=== PATIENT | female | born 1975 | race Caucasian/White ===

== ENCOUNTER 2016-11-14 23:06 | Emergency (ER) | payer MEDICAID, OTHER ==
[2016-11-14 23:42] LABS: % IMMATURE GRANULYOCYTES 0.1 % (0.0-1.1); ABSOLUTE IMMATURE GRANULOCYTES 0.01 10^3/uL (0.00-0.10); ADD DIFF? NO; ADD MORPH? NO; ADD SCAN? NO; ATYPICAL LYMPHOCYTE FLAG 10 (0-99); FRAGMENT RBC FLAG 0 (0-99); HEMATOCRIT 40.6 % (38.0-47.0); HEMOGLOBIN 13.7 g/dL (12.6-16.3); LEFT SHIFT FLG 0 (0-99); LIPEMIA HEMOLYSIS FLAG 80 (0-99); MEAN CELL HEMOGLOBIN 29.1 pg (27.9-34.1); MEAN CELL HEMOGLOBIN CONCENTR. 33.7 g/dL (32.4-36.7); MEAN CELL VOLUME 86.2 fL (81.5-99.8); MEAN PLATELET VOLUME 9.9 fL (8.7-11.7); PLATELET CLUMPS FLAG 10 (0-99); PLATELET COUNT 255 10^3/uL (150-400); RED BLOOD CELL COUNT 4.71 10^6/uL (4.18-5.33); RED CELL DISTRIBUTION WIDTH 13.7 % (11.5-15.2)
[2016-11-14 23:56] LABS: ANION GAP 13 mEq/L (8-16); CALCIUM 9.4 mg/dL (8.5-10.4); CARBON DIOXIDE 23 mEq/l (22-31); CHLORIDE 105 mEq/L (97-110); CREATININE 0.7 mg/dL (0.6-1.0); ETHANOL SERUM < 10 mg/dL (0-10); GLOMERULAR FILTRATION RATE > 60; GLUCOSE 97 mg/dL (70-100); POTASSIUM 3.9 mEq/L (3.5-5.2); SALICYLATE < 1.0 mg/dL (2.0-20.0); SODIUM 141 mEq/L (134-144)
[2016-11-14 23:58] LABS: LITHIUM < 0.2 mEq/L (0.6-1.2)
--- NOTE | 2016-11-15 00:30 | EDPHY ---
H & P Stated Complaint: Depression; SI, seen at Crisis center tonight put on M1 - Personal History LMP (Females 10-55): 8-14 Days Ago Current Tetanus/Diphtheria Vaccine: Yes - Medical/Surgical History Hx Asthma: No Hx Chronic Respiratory Disease: No Hx Diabetes: No Hx Cardiac Disease: No Hx Renal Disease: No Hx Cirrhosis: No Hx Alcoholism: No Hx HIV/AIDS: No Hx Splenectomy or Spleen Trauma: No Other PMH: Depression. Bipolar - Social History Smoking Status: Never smoked HPI/ROS: Chief complaint: Mental health hold History of present illness: This is a 41-year-old female who presents to the emergency department on a mental health hold for medical clearance. Patient has a history of bipolar. Recently she has been becoming more depressed. She is having difficulty performing activities of daily living. She cannot take her medications as she is so depressed. She is now having thoughts of killing herself. No specific plan. She denies homicidal ideation. She denies illness or injury. Patient was at the mental health crisis center where she was placed on the mental health hold and sent here. Review of systems: A 10 point review of systems was obtained and other than described above was negative (Tulio Townsend) - Physical Exam Exam: General Appearance: Alert, nontoxic. Eyes: Pupils equal and round no pallor or injection. ENT, Mouth: Mucous membranes moist. Respiratory: There are no retractions, lungs are clear to auscultation. Cardiovascular: Regular rate and rhythm. Gastrointestinal: Abdomen is soft and nontender, no masses, bowel sounds normal. Neurological: Alert and oriented x4. Strength and sensation intact and symmetrical. Skin: Warm and dry, no rashes. Musculoskeletal: Neck is supple nontender. Extremities are symmetrical, full range of motion. Psychiatric: Patient is oriented X 3, there is no agitation. (Tulio Townsend) Constitutional: Initial Vital Signs Temperature (C) 36.7 C 11/14/16 23:25 Heart Rate 87 11/14/16 23:25 Respiratory Rate 20 11/14/16 23:25 Blood Pressure 127/82 H 11/14/16 23:25 O2 Sat (%) 97 11/14/16 23:25 O2 Delivery Mode Room Air Allergies/Adverse Reactions: No Known Allergies Allergy (Unverified 11/14/16 23:24) Home Medications: Medication Instructions Recorded Latuda 03/04/17 [place] Aspartate 11/14/16 Seroquel 11/14/16 Vistaril 11/14/16 Medical Decision Making ED Course/Re-evaluation: Patient seen under the supervision of my secondary supervising physician Dr. Chad Gomez. Patient presents to the emergency department on a mental health hold which reports her as being gravely disabled and having suicidal ideation. Patient is nontoxic. Vital signs are stable. She is medically evaluated and cleared for psychiatric evaluation. This is pending at time of dictation. Care of patient is turned over to my attending physician at end of shift. (Tulio Townsend) 0100 care assumed by me from OLIVIA Townsend pending placement. 0530 patient has been accepted to [facility] under Dr. Marx. I have completed the EMTALA form. There been no issues during my care of this patient. (Chad Farley) Differential Diagnosis: Included but not limited to depression, bipolar, schizophrenia, substance abuse (Tulio Townsend) - Data Points Laboratory Results: Laboratory Results 11/14/16 23:30 11/14/16 23:30 11/14/16 11/14/16 11/14/16 23:59 23:30 23:30 WBC RBC Hgb Hct MCV MCH MCHC RDW Plt Count MPV Neut % (Auto) Lymph % (Auto) Heard % (Auto) Eos % (Auto) Baso % (Auto) Nucleat RBC Rel Count Absolute Neuts (auto) Absolute Lymphs (auto) Absolute Monos (auto) Absolute Eos (auto) Absolute Basos (auto) Absolute Nucleated RBC Immature Gran % Immature Gran # Sodium Potassium Chloride Carbon Dioxide Anion Gap BUN Creatinine Estimated GFR Glucose Calcium TSH 1.950 uIU/mL uIU/mL (0.465-4.680) Beta HCG, Qual NEGATIVE Salicylates Urine Opiates Screen NEGATIVE (NEGATIVE) Acetaminophen Urine Barbiturates NEGATIVE (NEGATIVE) Ur Phencyclidine Scrn NEGATIVE (NEGATIVE) Ur Amphetamine Screen NEGATIVE (NEGATIVE) U Benzodiazepines Scrn NEGATIVE (NEGATIVE) [place] Urine Cocaine Screen NEGATIVE (NEGATIVE) U Marijuana (THC) Screen NEGATIVE (NEGATIVE) Ethyl Alcohol 11/14/16 11/14/16 23:30 23:30 WBC 7.60 10^3/uL 10^3/uL (3.80-9.50) RBC 4.71 10^6/uL 10^6/uL (4.18-5.33) Hgb 13.7 g/dL g/dL (12.6-16.3) Hct 40.6 % % (38.0-47.0) MCV 86.2 fL fL (81.5-99.8) MCH 29.1 pg pg (27.9-34.1) MCHC 33.7 g/dL g/dL (32.4-36.7) RDW 13.7 % % (11.5-15.2) Plt Count 255 10^3/uL 10^3/uL (150-400) MPV 9.9 fL fL (8.7-11.7) Neut % (Auto) 69.1 % % (39.3-74.2) Lymph % (Auto) 21.8 % % (15.0-45.0) Heard % (Auto) 6.8 % % (4.5-13.0) Eos % (Auto) 1.8 % % (0.6-7.6) Baso % (Auto) 0.4 % % (0.3-1.7) Nucleat RBC Rel Count 0.0 % % (0.0-0.2) Absolute Neuts (auto) 5.24 10^3/uL 10^3/uL (1.70-6.50) Absolute Lymphs (auto) 1.66 10^3/uL 10^3/uL (1.00-3.00) Absolute Monos (auto) 0.52 10^3/uL 10^3/uL (0.30-0.80) Absolute Eos (auto) 0.14 10^3/uL 10^3/uL (0.03-0.40) Absolute Basos (auto) 0.03 10^3/uL 10^3/uL (0.02-0.10) Absolute Nucleated RBC 0.00 10^3/uL 10^3/uL (0-0.01) Immature Gran % 0.1 % % (0.0-1.1) Immature Gran # 0.01 10^3/uL 10^3/uL (0.00-0.10) Sodium 141 mEq/L mEq/L (134-144) Potassium 3.9 mEq/L mEq/L (3.5-5.2) Chloride 105 mEq/L mEq/L (97-110) Carbon Dioxide 23 mEq/l mEq/l (22-31) Anion Gap 13 mEq/L mEq/L (8-16) BUN 10 mg/dL mg/dL (7-23) Creatinine 0.7 mg/dL mg/dL (0.6-1.0) Estimated GFR > 60 Glucose 97 mg/dL mg/dL (70-100) Calcium 9.4 mg/dL mg/dL (8.5-10.4) TSH Beta HCG, Qual Salicylates < 1.0 mg/dL L mg/dL (2.0-20.0) Urine Opiates Screen Acetaminophen < 10 mcg/mL L mcg/mL (10.0-30.0) Urine Barbiturates Ur Phencyclidine Scrn Ur Amphetamine Screen U Benzodiazepines Scrn [place] < 0.2 mEq/L L mEq/L (0.6-1.2) Urine Cocaine Screen U Marijuana (THC) Screen Ethyl Alcohol < 10 mg/dL mg/dL (0-10) Departure - Departure Disposition: Other Psych, Not [place] Clinical Impression: Suicidal ideation Referrals: NONE *PRIMARY CARE P,. [Primary Care Provider] - As per Instructions
[2016-11-15 07:42] VITALS: BP 136/91; PULSE 82; RESP 18; TEMP 97.9; O2SAT 99
== END 2016-11-15 07:37 ==
LOC: EDUNIT#
DX: R45.851 Suicidal ideations (principal)
CPT/HCPCS: 80305; G0480

== ENCOUNTER 2017-01-15 14:39 | Emergency (ER) | payer MEDICAID ==
--- NOTE | 2017-01-15 14:52 | CPEKG ---
Heart Rate: 105 RR Interval: 571 P-R Interval: 200 QRSD Interval: 88 QT Interval: 348 QTC Interval: 461 P [place]: 75 QRS [place]: -61 T Wave [place]: 32 EKG Severity - OTHERWISE NORMAL ECG - EKG Impression: SINUS TACHYCARDIA EKG Impression: LEFT AXIS DEVIATION Electronically Signed By: Yamil Galicia 16-Jan-2017 00:09:01
--- NOTE | 2017-01-15 14:57 | EDPHY ---
H & P Smoking Status: Never smoked Time Seen by Provider: 01/15/17 14:55 HPI/ROS: Chief complaint. [facility] OD, suicide ideation HPIKishan Wall is a 41 yo female who took 1 cup peterson's oil, Nice 900 mg, Seroquel 60 tqblets, Latuda 40 pills at 10-11pm last night. Denies alcohol or other ingestions. Today patient couldn't walk and called neighbor who called 911. No previous suicide attempts. Mom told her that she didn't want to see her anymore. "I don't want to be fine." Patient denies shortness of breath or abdominal pain. No vomiting or diarrhea. No cough ROS Constitutional. Weakness Eyes. no problems with vision ENT. no sore throat, no nasal drainage Cardiovascular. no chest pain Respiratory. no shortness of breath, no cough Abdominal. no abdominal pain, no nausea/vomiting, no diarrhea . no problems urinating MS. no calf pain/swelling, no neck/back pain, no joint pain Skin. no rash Lymph. no swollen glands Neuro. Off balance (Yamil Galicia) Past Medical/Surgical History: Depression, bipolar illness (Yamil Galicia) Social History: Single, nonsmoker, no alcohol (Yamil Galicia) Physical Exam: General Appearance: Alert well-developed female slightly sleepy appearing but otherwise conversational. Vital signs significant for heart rate of 111 Eyes: Pupils equal and round no pallor or injection. ENT, Mouth: Mucous membranes are moist. Respiratory: There are no retractions, lungs are clear to auscultation. Cardiovascular: Regular rate and rhythm. Gastrointestinal: Abdomen is soft and nontender, no masses, bowel sounds normal. Neurological: Awake and alert, sensory and motor exams grossly normal. Skin: Warm and dry, no rashes. Musculoskeletal: Neck is supple nontender. Extremities symmetrical, full range of motion. Psychiatric: Patient is oriented X 3, there is no agitation. (Yamil Galicia) Constitutional: Initial Vital Signs Temperature (C) 36.8 C 01/15/17 14:43 Heart Rate 111 H 01/15/17 14:43 Respiratory Rate 12 01/15/17 14:43 Blood Pressure 149/100 H 01/15/17 14:43 O2 Sat (%) 97 01/15/17 14:43 O2 Delivery Mode Room Air Allergies/Adverse Reactions: No Known Allergies Allergy (Unverified 11/14/16 23:24) Home Medications: Medication Instructions Recorded Latuda 11/14/16 [place] Aspartate 11/14/16 Seroquel 11/14/16 Vistaril 11/14/16 Medical Decision Making - Diagnostics EKG Interpretation: EKG interpreted by me shows sinus tachycardia normal interval. Left axis deviation. QRS is otherwise normal there is no significant ST elevation or depression. No arrhythmia. The rate is 105 (Yamil Galicia) Imaging Results: Chest x-ray interpreted by me is normal (Yamil Galicia) Procedures: IV normal saline, monitor (Yamil Galicia) ED Course/Re-evaluation: Poison control case #[id number]--Nncvna Patient remained stable on re-evaluation. Her heart rate still is about 116. She will be given a L of saline. Patient is slightly acidotic with a slight elevated anion gap. This is likely due to some of the medication that she took last night or could be lactate from dehydration. At any rate patient is alert and conversational stable. She and I discussed lab results, treatment plan including recommendation for mental health evaluation likely inpatient treatment. She expresses understanding and agreement Patient is med cleared and will have mental health evaluation Patient has remained stable on my shift. (Yamil Galicia) 1215: Patient has been seen evaluated by mental health. Recommends admission they will perform a bed search at this time. 0542AM: No acute events overnight. Patient pending inpatient psychiatric admission. Bed search being performed. Patient signed over at 7:00 a.m. shift change to Dr. Vargas. (Tristen Singletary) Other Provider: I assumed care of the patient at 0700 pending psychiatric placement. Update at 1:00 p.m.: The patient has been accepted for inpatient psychiatric admission by Dr. Reaves at [facility]. I have filled out the EMTALA transfer sheet. (Estuardo Vargas) Care Turn Over: Care transferred to Dr. Singletary at midnight (Yamil Galicia) - Data Points Laboratory Results: Laboratory Results 01/15/17 14:45 01/16/17 06:25 01/16/17 01/16/17 06:25 04:46 Sodium 147 mEq/L H mEq/L (134-144) Potassium 4.0 mEq/L mEq/L (3.5-5.2) Chloride 114 mEq/L H mEq/L (97-110) Carbon Dioxide 22 mEq/l mEq/l (22-31) Anion Gap 11 mEq/L mEq/L (8-16) BUN 8 mg/dL mg/dL (7-23) Creatinine 0.8 mg/dL mg/dL (0.6-1.0) Estimated GFR > 60 Glucose 103 mg/dL H mg/dL (70-100) Calcium 9.2 mg/dL mg/dL (8.5-10.4) Total Bilirubin 1.3 mg/dL mg/dL (0.1-1.4) Conjugated Bilirubin 0.3 mg/dL mg/dL (0.0-0.5) Unconjugated Bilirubin 1.0 mg/dL mg/dL (0.0-1.1) AST 21 IU/L IU/L (14-46) ALT 29 IU/L IU/L (9-52) Alkaline Phosphatase 61 IU/L IU/L (38-126) Total Protein 6.7 g/dL g/dL (6.3-8.2) Albumin 3.7 g/dL g/dL (3.5-5.0) Urine Opiates Screen NEGATIVE (NEGATIVE) Urine Barbiturates NEGATIVE (NEGATIVE) Ur Phencyclidine Scrn NEGATIVE (NEGATIVE) Ur Amphetamine Screen NEGATIVE (NEGATIVE) U Benzodiazepines Scrn NEGATIVE (NEGATIVE) Urine Cocaine Screen NEGATIVE (NEGATIVE) U Marijuana (THC) Screen NEGATIVE (NEGATIVE) Medications Given: Discontinued Medications Sodium Chloride (Ns) 1,000 mls @ 3,000 mls/hr IV ONCE ONE Stop: 01/15/17 17:18 Last Admin: 01/15/17 17:11 Dose: 1,000 mls Sodium Chloride (Ns) 1,000 mls @ 0 mls/hr IV ONCE ONE PRN Reason: Wide Open Stop: 01/16/17 04:51 Last Admin: 01/16/17 04:50 Dose: 1,000 mls Departure - Departure Disposition: Other Psych, Not [place] Clinical Impression: Suicidal ideation Depression Qualifiers: Depression Type: unspecified Qualified Code(s): F32.9 - Major depressive disorder, single episode, unspecified Condition: Good Referrals: NONE *PRIMARY CARE P,. [Primary Care Provider] - As per Instructions
[2017-01-15 15:01] LABS: % IMMATURE GRANULYOCYTES 0.3 % (0.0-1.1); ABSOLUTE IMMATURE GRANULOCYTES 0.02 10^3/uL (0.00-0.10); ADD DIFF? NO; ADD MORPH? NO; ADD SCAN? NO; ATYPICAL LYMPHOCYTE FLAG 20 (0-99); FRAGMENT RBC FLAG 0 (0-99); HEMATOCRIT 43.4 % (38.0-47.0); HEMOGLOBIN 14.6 g/dL (12.6-16.3); LEFT SHIFT FLG 0 (0-99); LIPEMIA HEMOLYSIS FLAG 80 (0-99); MEAN CELL HEMOGLOBIN 28.5 pg (27.9-34.1); MEAN CELL HEMOGLOBIN CONCENTR. 33.6 g/dL (32.4-36.7); MEAN CELL VOLUME 84.6 fL (81.5-99.8); MEAN PLATELET VOLUME 9.7 fL (8.7-11.7); PLATELET CLUMPS FLAG 10 (0-99); PLATELET COUNT 285 10^3/uL (150-400); RED BLOOD CELL COUNT 5.13 10^6/uL (4.18-5.33)
[2017-01-15 15:09] LABS: ANION GAP 18 mEq/L (8-16); CALCIUM 9.9 mg/dL (8.5-10.4); CARBON DIOXIDE 19 mEq/l (22-31); CHLORIDE 105 mEq/L (97-110); CREATININE 0.9 mg/dL (0.6-1.0); ETHANOL SERUM < 10 mg/dL (0-10); GLOMERULAR FILTRATION RATE > 60; GLUCOSE 138 mg/dL (70-100); POTASSIUM 3.8 mEq/L (3.5-5.2); SALICYLATE < 1.0 mg/dL (2.0-20.0); SODIUM 142 mEq/L (134-144)
[2017-01-15 15:11] LABS: LITHIUM < 0.2 mEq/L (0.6-1.2)
[2017-01-15] MEDS ORDERED: NS 1,000 ML IV ONE (16:59)
[2017-01-16] MEDS ORDERED: NS 1,000 ML IV ONE (04:50)
[2017-01-16 06:45] LABS: ALANINE AMINOTRANSFERASE 29 IU/L (9-52); ALBUMIN 3.7 g/dL (3.5-5.0); ALKALINE PHOSPHATASE 61 IU/L (38-126); ANION GAP 11 mEq/L (8-16); ASPARTATE AMINOTRANSFERASE 21 IU/L (14-46); BILIRUBIN,TOTAL 1.3 mg/dL (0.1-1.4); BILIRUBIN-CONJUGATED 0.3 mg/dL (0.0-0.5); CALCIUM 9.2 mg/dL (8.5-10.4); CARBON DIOXIDE 22 mEq/l (22-31); CHLORIDE 114 mEq/L (97-110); CREATININE 0.8 mg/dL (0.6-1.0); GLOMERULAR FILTRATION RATE > 60; GLUCOSE 103 mg/dL (70-100); SODIUM 147 mEq/L (134-144); TOTAL PROTEIN 6.7 g/dL (6.3-8.2)
[2017-01-16 08:06] VITALS: RESP 18
[2017-01-16 12:48] VITALS: BP 134/93; PULSE 89; TEMP 98.4; O2SAT 98
== END 2017-01-16 13:46 ==
LOC: EDUNIT#
DX: T55.0X2A Toxic effect of soaps, intentional self-harm, initial encounter (principal); T43.8X2A Poisoning by other psychotropic drugs, intentional self-harm, initial encounter; T43.592A Poisoning by other antipsychotics and neuroleptics, intentional self-harm, initial encounter; F32.9 Major depressive disorder, single episode, unspecified
CPT/HCPCS: 80305; G0480

== ENCOUNTER 2017-02-02 11:46 | Inpatient (IN) | payer MEDICAID ==
[2017-02-02] MEDS ORDERED: NICOTINE POLACRILEX 2 MG GUM B PRN (16:55)
[2017-02-02] MEDS ORDERED: ACETAMINOPHEN 325 MG TAB PO PRN (16:55)
[2017-02-02] MEDS ORDERED: MAG HYDROX/AL HYDROX/SIMETH 30 ML UDCUP PO PRN (16:55)
[2017-02-02] MEDS ORDERED: LORazepam 0.5 MG TAB PO PRN (16:55)
[2017-02-02] MEDS ORDERED: MAGNESIUM HYDROXIDE 30 ML UDCUP PO PRN (16:55)
[2017-02-02] MEDS: POLYETHYLENE GLYCOL 3350 17 GM PKT PO SCH (19:47)
[2017-02-02] MEDS: LURASIDONE HCL 80 MG TAB PO SCH (19:47)
[2017-02-02] MEDS: QUEtiapine FUMARATE 50 MG TAB PO SCH (19:47)
[2017-02-02] MEDS: LITHIUM CARBONATE 600 MG CAP PO SCH (19:47)
[2017-02-03] MEDS: LITHIUM CARBONATE 600 MG CAP PO SCH ×2 (09:07→21:33)
--- NOTE | 2017-02-03 15:33 | CPEKG ---
Heart Rate: 88 RR Interval: 682 P-R Interval: 152 QRSD Interval: 92 QT Interval: 348 QTC Interval: 421 P [place]: 84 QRS [place]: -68 T Wave [place]: 40 EKG Severity - ABNORMAL ECG - EKG Impression: SINUS RHYTHM EKG Impression: LEFT ANTERIOR FASCICULAR BLOCK EKG Impression: NONSPECIFIC T ABNORMALITIES, ANTERIOR LEADS EKG Impression: COMPARED WITH 01/15/2017, ANTERIOR T ABNL NOW SEEN Electronically Signed By: Cherise Escobedo 03-Feb-2017 17:20:29
--- NOTE | 2017-02-03 18:55 | SOAPPROG ---
SOAP Progress Note Assessment/Plan: Assessment: Plan: 02/03/17 18:59 Incomplete history. 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 Need collateral. Poorly documented past psychiatric hx from referring agencies. Will observe, continue to attempt to contact M. Will consider ECT if hx is clearer. Subjective: Pt seen, interviewed alone and with visiting friend. Unable to give complete history mainly due to preoccupation with delusional system regarding mother. She is distracted from the simplest question such as, "How is your sleep?" and answers, "I don't know why my mother hates me now. We used to be so close." I have a message in to her mother who is traveling internationally and have reviewed all the available records. Will continue her previous medications and monitor for now until more complete formulation is possible. Objective: Vital Signs Temp Pulse Resp BP Pulse Ox 37.0 C 92 95 H 115/66 17 L 02/03/17 06:00 02/03/17 06:00 02/03/17 06:00 02/03/17 06:00 02/03/17 06:00 MSE: Moderately anxious, cooperative. Unwilling to get out of bed or even sit up. Keeps the sheets pulled up to her chin. Eye contact is o/w good. Speech is nl. Affect is blunted, odd at times, generally dysphoric. Mood is "really depressed." TP perseverative. TC reveals paranoid/persecutory delusions re: mother and possible IOR's, though she is guarded. A&Ox4, sensorium is clear. Continues to endorse SI, stating, "I don't want to be on this planet any more." - Time Spent With Patient Time Spent With Patient: 45" - Pending Discharge Pending Discharge Within 24 Hours: No Pending Discharge Within 48 Hours: No ICD10 Worksheet Patient Problems: Problems Problem Status Onset Bipolar 1 disorder, depressed, severe Acute - ICD10 Problem Qualifiers (1) Bipolar 1 disorder, depressed, severe
--- NOTE | 2017-02-03 20:40 | BCON ---
[f rep st] BEHAVIORAL HEALTH CONSULTATION INTERNAL MEDICINE CONSULTATION DATE OF CONSULTATION: 02/03/2017 REFERRING PHYSICIAN: Robbin Villareal MD REASON FOR REFERRAL: Medical clearance for inpatient behavioral health stay. HISTORY OF PRESENT ILLNESS: This patient was referred to [facility] from [place], where she had been in a program for treatment of bipolar disorder and suicidality. She apparently did not respond well to treatment, including changes in medications and a therapeutic milieu, so she was referred to [facility] for possible electroconvulsive therapy. She is currently without acute complaint; however, she reports that she has had constipation for approximately 2 weeks. PAST MEDICAL HISTORY: Bipolar disorder. She denies any history of other medical problems or surgeries. MEDICATIONS: She was on lithium, Latuda, and Seroquel. SOCIAL HISTORY: She has recently lost her job and been evicted from her apartment. She also apparently had a break-up with a significant other. She is nonsmoker and nondrinker. Her mother is involved in her care, but there is a history of some kind of conflict with her mother. FAMILY HISTORY: Noncontributory medically. There is a history of an aunt who committed suicide. REVIEW OF SYSTEMS: She denies feeling excessively hot or cold. She denies weight gain and weight loss. She has a reduced appetite, but reports normal fluid intake. She reports constipation x2 weeks. She denies abdominal pain but reports that she has significant rectal pain. She denies cough, dyspnea, fevers, chills, joint pain, joint swelling, skin rash, and skin breakdown; otherwise, a 10-point review of systems is negative. PHYSICAL EXAMINATION: VITAL SIGNS: Blood pressure is 115/66, heart rate is 92 , respiratory rate is 14, oxygen saturation is 95% on room air, temperature is 37 degrees centigrade. Her weight is 63.5 kg for a body mass index of 20.1. GENERAL: This is a well-nourished, well-developed woman, who appears her chronologic age. Cooperative and in no acute distress. HEENT: Extraocular movements are intact. Pupils are equal, round, and reactive to light. Mucous membranes are moist. Dentition is in good condition. NECK: Supple. HEART: Regular rate and rhythm with no murmurs, rubs, or gallops. LUNGS: Clear to auscultation bilaterally. ABDOMEN: Soft, nontender, and nondistended with normoactive bowel sounds. EXTREMITIES: There is no cyanosis, clubbing, or edema. NEUROLOGIC: She is alert. Orientation was not checked. She has an unusual affect and does not always directly respond to questions, and has somewhat slow processing. Cranial nerves 2-12 are grossly intact. There is no focal weakness. Sensation is intact to light touch. LABORATORY STUDIES: Reviewed from her stay in [place]. 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 CBC, CMP, lipid panel, and TSH were all within normal limits. ASSESSMENT/RECOMMENDATIONS: 1. Bipolar disorder. Considering electroconvulsive therapy. Await further evaluation and plan per psychiatry and the mental health team. 2. Constipation. She reports that this has been refractory; however, an emergency department note from [facility] on 02/01/2017 was reviewed and reported successful disimpaction and an enema with moderate amount of stool. She currently has a benign abdominal exam, and there was a report from the nurses here that she may have had some diarrhea. Reviewing her medications, polyethylene glycol has been prescribed and that is appropriate. If she does not move her bowels over the next several days, further evaluation would be reasonable. There was x-ray study done in [place] which showed no bowel obstruction, and she is not hypothyroid, so there is no obvious etiology for constipation. 3. Anal pain. This may a result of digital disimpaction, enemas, and diarrhea. Observe, monitoring for resolution. 4. Possible coronary artery disease with an abnormal EKG. I leave it to the discretion of Psychiatry whether to have a cardiology consultation prior to electroconvulsive therapy. I see no contraindication to this patient's continued stay on the inpatient behavioral health unit or to any psychiatric medications or procedures, with a caveat that Cardiology should review her EKG prior to electroconvulsive therapy. Thank you very much for including me in the care of this patient, and please do not hesitate to contact me or the hospitalists service should there be need for further medical evaluation. /[id number]/MODL MTDD
[2017-02-03] MEDS: POLYETHYLENE GLYCOL 3350 17 GM PKT PO SCH (21:33)
[2017-02-03] MEDS: LURASIDONE HCL 80 MG TAB PO SCH (21:33)
[2017-02-03] MEDS: QUEtiapine FUMARATE 50 MG TAB PO SCH (21:33)
[2017-02-04] MEDS: LITHIUM CARBONATE 600 MG CAP PO SCH ×2 (08:56→20:59)
[2017-02-04] MEDS ORDERED: QUEtiapine FUMARATE 50 MG TAB PO SCH (11:27)
[2017-02-04] MEDS: LURASIDONE HCL 80 MG TAB PO SCH (20:59)
[2017-02-05 11:17] VITALS: BP 112/68; PULSE 77; RESP 14; TEMP 98.3; O2SAT 98
[2017-02-05] MEDS: LITHIUM CARBONATE 600 MG CAP PO SCH (11:40)
--- NOTE | 2017-02-05 11:49 | ECHO ---
[id number] + + [address] : : [place] [address] : : [phone] + + Adult Echocardiographic Report + ------+ :Name: KWESI ONEILL UStudy Date: 02/05/2017 11:34 AM : : Hospital Admission Number: [id number] Katrina n: CHEVYC: :: 1975 Gender: Female : :Age: 41 yrs Race: WH : :Reason For Study: Eval LV Fx : :History: Pre ECT : + ------+ Conclusion A complete two-dimensional transthoracic echocardiogram was performed (2D, M-mode, Doppler and color flow Doppler). Final Reading Physician: Fredo Sanchez signed on 02/05/2017 11:47 AM Ordering Physician: Kevin Villareal Referring Physician: Avery Sorensen MD Performed By: Roc Way, CS
--- NOTE | 2017-02-05 13:07 | ECHO ---
[id number] + + [address] : : [place] [address] : : [phone] + + Adult Echocardiographic Report + ------+ :Name: KWESI ONEILL UStudy Date: 02/05/2017 08:39 AM : : Hospital Admission Number: [id number] Locatio n: CVC: :: 1975 Gender: Female : :Age: 41 yrs Race: WH : :Reason For Study: Eval LV Fx : :History: Pre ECT : + ------+ MMode/2D Measurements \T\ Calculations IVSd: 0.68 cm LVIDd: 3.8 cm FS: 40.7 % Ao root diam: 2.4 cm LVPWd: 0.80 cm LVIDs: 2.3 cm EDV(Teich): 63.6 ml ACS: 1.5 cm ESV(Teich): 17.7 ml EF(Teich): 72.1 % Normal Measurement Values: + + :LVIDd (3.5-5.7cm) IVSd (0.6-1.1cm) LVPWd (0.6-1.1cm) Aortic Root (2.0-3.7cm)Left Atrium (1.5-4.0cm): :LV Vol(d) (76-115ml) LV Vol(s) (29-48ml) Ejec Fraction (50-65%)PV Daniel (0.6- 1.2m/s) TV Daniel (0.4-1.0m/s) : :MV E Daniel (0.8-1.0m/s)MV A Daniel (0.3-1.0m/s)LVOT Daniel (0.7-1.2m/s) Asc Ao Daniel ( 0.9-1.8m/s) : + + Doppler Measurements \T\ Calculations MV E max daniel: Ao V2 max: LV V1 max: PA V2 max: 85.9 cm/sec 114.0 cm/sec 99.2 cm/sec 100.4 cm/sec MV A max daniel: Ao max P.2 mmHgLV V1 max PG: PA max P.0 mmHg 70.6 cm/sec 3.9 mmHg MV E/A: 1.2 Left Ventricle The left ventricle is normal in size and function. There is normal left ventricular wall thickness. Ejection Fraction = 60-65%. Right Ventricle The right ventricle is normal in size and function. Atria The left atrial size is normal. Right atrial size is normal. A patent foramen ovale is present. Injection of contrast documented an interatrial shunt. Mitral Valve The mitral valve is normal in structure and function. There is no mitral regurgitation noted. Tricuspid Valve The tricuspid valve is normal in structure and function. No tricuspid regurgitation. Aortic Valve The aortic valve is normal in structure and function. Pulmonic Valve The pulmonic valve is not well visualized. Great Vessels The aortic root is normal size. Pericardium/Pleural trivial pericardial effusion. Conclusion A complete two-dimensional transthoracic echocardiogram was performed (2D, M-mode, Doppler and color flow Doppler). The left ventricle is normal in size and function. Ejection Fraction = 60-65%. There are no wall motion abnormalities. Normal appearing valves. No significant stenosis or insufficiency. Trivial pericardial effusion. A patent foramen ovale is present. There was small right to left shunt noted following injection of agitated saline. A complete two-dimensional transthoracic echocardiogram was performed (2D, M-mode, Doppler and color flow Doppler). Final Reading Physician: Fredo Sanchez signed on 02/05/2017 01:06 PM Ordering Physician: Kevin Villareal Performed By: Roc Way, ELIECERCS
--- NOTE | 2017-02-05 14:10 | GCON ---
[f rep st] CONSULTATION CARDIOLOGY CONSULTATION. DATE OF CONSULTATION: 02/04/2017 REFERRING PHYSICIAN: Robbin Villareal MD INDICATIONS: Preprocedural cardiovascular assessment in this patient with an abnormal EKG and plann ed ECT therapy. HISTORY OF PRESENT ILLNESS: The patient is a 41-year-old. She is currently an inpatient in the [place] [facility] unit here at [facility]. She has a longstanding history of bipolar dis order. She states she has been hospitalized 4 or 5 times over the last 20 years with this condition . She has never had a previous cardiovascular difficulty, nor has she, per her report, undergone a cardiac workup. Apparently earlier this month, on January 15, 2017, she attempted suicide by overdosing with her medications and drinking cleaning fluid. Ultimately she was hospitalized up in [facility], and eventually transferred down here for definitive therapy. There are plans for her to have ECT therapy. She has been taking lithium, Latuda and Seroquel to treat her bipolar disorder. She stat es she generally feels well. When she is healthy she likes to hike, and she is able to hike without difficulties of chest pain, chest pressure, heaviness, or dyspnea. For the last several months she has not been participating in these activities due to depression that occurred after she lost her j ob in October. 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 She denies orthopnea, PND, and edema. She notes no history of palpitations. She denies dizziness and lightheadedness. There is no family history of sudden . Apparently her father did of an [place] when he was in his 50s . She was transferred over to the [facility] from the [facility] health unit due to her abnormal ECG. I d id review her electrocardiogram dated January 30, 2017, there is also another electrocardiogram from February 03, 2017. These demonstrate sinus rhythm with left axis deviation, and a left anterior fascicular block. She has an isolated T-wave inversion in V2. PAST MEDICAL HISTORY: Bipolar disorder, as noted above. This has been present for 20 years. She h as been hospitalized 4 or 5 times. MEDICATIONS: Outpatient medications include [place], Latuda and Seroquel. PAST SURGICAL HISTORY: Surgeries are none. ALLERGIES: None. FAMILY HISTORY: Her father at the age of 54 from complications related to myocardial infarctio n. SOCIAL HISTORY: She is single. She does have a law degree, although she does not practice law. 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 Apparently her job was cut after funding was cut. S he has been in the behavioral health unit here for 3 days. She does not smoke, use alcohol or drugs . She likes to exercise by hiking, however, states that she has been sick for the last several vangie hs, therefore has not been exercising. She has no siblings. PHYSICAL EXAMINATION: VITAL SIGNS: Blood pressure 113/82, heart rate is 75 and regular, respirator y rate is 14, room air saturations are 96%. GENERAL: She is a healthy female in no acute di stress. HEENT: Normocephalic, atraumatic. She has anicteric sclerae. Her oropharynx is unremarka ble. NECK: Carotids are 2+ bilaterally, with no bruits. She has no jugular venous distention, karthik nopathy or thyromegaly. RESPIRATORY: She is breathing easy, resting comfortably, there is no use o f accessory muscles on auscultation, has clear lung bardales bilaterally. CARDIAC: Precordial inspec tion unremarkable, PMI is nondisplaced. On auscultation she has a regular rate and rhythm without m urmurs, gallops, or rubs. ABDOMEN: Soft, nontender. She has normoactive bowel sounds. No masses are appreciated. Abdominal aorta is nonpalpable. EXTREMITIES: Warm and well perfused. There is n o edema. VASCULATURE: She has 2+ radial, dorsal pedal and posterior tibial pulses. NEUROLOGIC: S he is alert and oriented with pleasant mood and affect. She moves all 4 limbs spontaneously. DATABASE: Her EKG is as described above. She had blood work done on January 15, 2017 which was noted to be normal. Cholesterol panel from 2016 demonstrated a total cholesterol 196, LDL 119, and HDL of 62. She had an echocardiogram done today. This was essentially a normal study. Specifically, she had n ormal contractility of the inferior wall. There was evidence of a small PFO. IMPRESSION: 1. History of bipolar disorder. 2. Current hospitalization here at the behavior health unit of [facility] with suicid al ideation and attempted suicide. 3. Abnormal electrocardiogram, indicating left anterior fascicular block and abnormal T-wave in V2. 4. Patent foramina ovale. DISCUSSION: The patient is a 41-year-old with a fairly benign cardiovascular risk factor profile. There is a family history in the fact that her father in his 50s due to a myocardial infarction . She has an abnormal electrocardiogram, suggestive of a left anterior fascicular block. Sometimes the left anterior fascicular block can result in inferior pseudo Q-waves in a pseudo inferior infar ct pattern. This appears to be the case presently. Her echocardiogram is normal with normal inferi or wall contractility. She does have a PFO which is an incidental finding, certainly does not need therapy at the present time. At the present time, given her functional status, and results of her echocardiogram, there is no ind ication of a prior myocardial infarction or significant structural heart disease. She has no contra indications to safely undergoing ECT therapy without further diagnostic testing. She had been sched uled for a stress test, which I do not think would add any clinical utility, therefore I cancelled t hat study. Please feel free to contact me with questions. /[id number]/MODL
--- NOTE | 2017-02-05 14:46 | BAPA ---
[f rep st] ADMISSION PSYCHIATRIC ASSESSMENT EVALUATION: 02/03/2017 and 02/04/2017 CHIEF COMPLAINT: "I just don't know why my mother disowned me." HISTORY OF PRESENT ILLNESS: The patient is a 41-year-old white female who was admitted on transfer from [facility]. She was admitted to that facility on 01/26/2017 after she was transfe rred from an ATU. She had been at the ATU for 2 days due to some suicidal ideation and a suicide at tempt, in which she drank some floor winder. The patient is unable to give much independent histor y as she is fairly disorganized and perseverates on a fear that her mother has disowned her. She st ates that she believes she may have done something inadvertently to her mother and believes that "I must have written her a really mean letter when I was sick." She states that she does not remember writing the letter but is fairly certain she did something to offend her mother and make her mother want to disown her. She states that she lost her job due to downsizing in October and then became more depressed in November. She was hospitalized at [facility] due to suicidal thoughts at that time and d ischarged to [facility]. She states she was at [facility] for about a month and then returned h ome to her own apartment. She states that she was not doing well then and that "I was really sick a nd dysfunctional and couldn't care for myself. I couldn't eat or sleep." She states she began feel ing more suicidal and drank some floor winder. She then told a friend, who called the ambulance. She states now that she feels helpless and hopeless, and "I'm scared I'll never be functional again. " She reports feeling "really depressed," though cannot describe any symptoms of depression. She s tates that "I don't want to be in this world anymore." Any question that she is asked, she will res pond with a statement in regard to her being disowned by her mother. She also states that she has n ot had a bowel movement in 3 weeks and is very focused and fixated on this. Her room smells strongl y of feces, and she is noted to have feces on her body by the nursing staff. She insists, however, that she does not have bowel movements. Records are reviewed from [facility], and a letter of referral for ECT is noted from Dr Kishan Rawls. In it, he mentions that the patient has been previously treated with lithium, Lamictal, Seroquel, and Latuda with no benefit. She has had previous trials of Prozac, Zoloft, Celexa, Effex or, Cymbalta, and Abilify, also with no benefit. The patient is unable to give any history in regar d to her medication or previous treatment history. PAST PSYCHIATRIC HISTORY: Patient was hospitalized in November 2016 at [facility] due to suicidal thoughts and depression. She was hospitalized at [facility] in 1998 and 1996. She has previously taken the medici kehinde listed above. She states that "none of them worked and they all made me more suicidal." She di d have a suicide attempt in 1996 when she cut her wrists and walked into traffic. ALLERGIES: No known medical allergies. CURRENT MEDICATIONS: [place] carbonate ER 450 mg b.i.d., Latuda 80 mg daily, nortriptyline 50 mg h. s., and Seroquel 100 mg at h.s. PAST MEDICAL HISTORY: Noncontributory except for her self-report of constipation that seems unlikel y. PAST SURGICAL HISTORY: Patient states she has never had any surgeries nor has she been under any an esthesia. SOCIAL HISTORY: Patient is single and has no dependents. She reportedly recently broke up with her boyfriend. She was born in [facility] and grew up partially in [place]. Her mother is a profe ssor at the [employer] in psychology, and the patient has lived in [place] for the past 3 years. She has a BA in [employer] and graduated from [employer]. She states she graduated in 2011 and the record states she graduated in 2013, though it is unclear. 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 The record indicates that her job was terminated when they downsized . The patient's father when she was 21, and she has a good relationship with her stepfather. There are no siblings. The record indicates the patient's mother is very invested in her and that s he has not disowned her and that this is an unrealistic delusional fear that the patient has. SUBSTANCE ABUSE HISTORY: Noncontributory. FAMILY HISTORY: The patient's biological father has schizophrenia, per her report. ADMISSION LABORATORY: No additional labs were drawn. MENTAL STATUS EXAMINATION: Reveals a disheveled, malodorous female lying in a hospital bed wearing hospital garb. She maintains good eye contact but does not sit up. She lies on her side and talks to me with the sheets pulled up to her neck. Her overall activity is normal. Her affect is blunted , stable. Her mood is described as "depressed." Her thought process is disorganized, unable to sta y on track or give goal-directed answers to many questions. Her thought content reveals these fixed negative thoughts about her mother and being disowned that she is unable to avoid discussing with e very thought. She is alert and oriented to person, place, time, and situation. There is no evidenc e of delirium. Patient's intellect appears to be above average, as evidenced by her education and o ccupational history, fund of knowledge, and vocabulary. She continues to endorse some thoughts of s uicide, stating that "I don't want to be in this world." Her insight and judgment appear to be milind inal. IMPRESSION: Bipolar type 1 disorder, most recent episode depressed, severe, with psychosis, recent loss of job, recent loss of primary relationship, recent eviction from her apartment, recurrent illn ess. The patient is a 41-year-old female who presents at this time on transfer from [facility] for consideration of ECT. She is clearly psychotic and has a history of bipolar disorder and is described as depressed. She herself describes herself as feeling depressed, though does not outward ly necessarily appear depressed. It is difficult to sort through this very regressed and primitive psychosis, though this could simply be evidence of the extent of her depression. She could be an EC T candidate, though I would certainly want to observe her initially to better understand her underly ing conditions. Her EKG has multiple abnormalities, and she will require an echocardiogram at least in order to sort this out. This will give us a day or two to decide on a treatment course. The disha ocampo herself is interested in ECT and was given educational materials. I have begun the process of providing informed consent, though it is unclear to me whether she is able to participate actively in this given her current disorganized and psychotic state. We will continue her current medication s as they were on transfer with the exception of the nortriptyline at this time due to her abnormal EKG. We will monitor closely and provide supportive care in regard to her bowels, though I believe that this is likely a psychotic regression as well and that she is doing likely some kind of bizarre ritualistic behavior with her bowel and/or feces and that we will need to figure this out as well. ESTIMATED LENGTH OF STAY: 7-10 days. /[id number]/MODL
--- NOTE | 2017-02-05 19:32 | BDS ---
[f rep st] BEHAVIORAL HEALTH DISCHARGE SUMMARY REASON FOR ADMISSION: Patient is a 41-year-old female, who was admitted on transfer from [facility] due to severe depression with psychosis. She was referred in part for ECT consultatio n as well. A full description of the events preceding admission can be found in her admission histo ry. ADMITTING DIAGNOSES: Bipolar 1 disorder, most recent episode depressed, severe, with psychosis. Re cent loss of job, recent loss of primary relationship, recent eviction, chronic illness, and relapse . ADMITTING PHYSICAL EXAMINATION: Performed by Dr. Robbi Chu reveals report of constipation and anal pain, no other acute findings. ADMISSION LABORATORY: No additional labs were drawn. HOSPITAL COURSE: Patient admitted to the behavioral services inpatient unit on a transfer of her ort-term certification from [facility]. She was cooperative though very disorganized a nd unable to give much coherent history. She perseverated on her belief that her mother has disowne d her though this is by all accounts untrue. She was focused on this fear to the exclusion of virtu ally all else. I was able to discuss with her a bit the history of her illness though it was diffic ult to ascertain her current condition from her self report. We were able to monitor for her for 24 hours, and she did appear to have continued symptoms of depression including a depressed and tearfu l affect, significant anxiety, and regressive psychosis. Her main complaint was of constipation fro m the first moment she arrived, and she had had an extensive workup for this at [facility]. This appeared to be consistent with her regressive psychosis, and I wondered if this was not s imply another delusional system. It appears that it was as she insisted that she was having no sue l movements yet was covered in feces several times during her stay and unable to appreciate this or clean herself up. She also was noted to be digitally disimpacting or attempting to disimpact hersel f with her own hands. This required extensive staff attention during her stay. Due to an abnormal EKG, the patient received an echocardiogram which showed a patent foramina ovale, otherwise normal. We were to proceed with ECT after the patient demonstrated the ability to provid e informed consent though I was informed she was to be transferred to [place]. She was then transferred to [facility] per their request, and she did not receive ECT. CONDITION AT DISCHARGE: Stable. She remained psychotic though was in good behavioral control. DISCHARGE MEDICATIONS: Latuda 80 mg daily at 1800, Seroquel 100 mg at h.s., lithium carbonate 450 m g b.i.d., and nortriptyline 50 mg q.h.s. DISCHARGE DIAGNOSES: Bipolar 1 disorder, most recent episode depressed, severe, with psychosis. Un employment, loss of primary relationship, eviction from home, chronic illness, recurrent illness. DISPOSITION: Patient left hospital via ambulance to go to [facility] at [facility]. LEGAL COURSE: The short-term certification was transferred to [facility]. /[id number]/MODL
== END 2017-02-05 16:30 | DRG 885 ==
LOC: BBEH 15:55
PROVIDERS: ADMIT Psychiatry & Neurology Psychiatry; ATTEND Psychiatry & Neurology Psychiatry
DX: F31.5 Bipolar disorder, current episode depressed, severe, with psychotic features (principal); R94.31 Abnormal electrocardiogram [ECG] [EKG]; Q21.1 Atrial septal defect